=== PATIENT | female | born 1970 | race Caucasian/White ===

== ENCOUNTER 2022-05-16 14:00 | Outpatient (RCR) | payer OTHER, SELFPAY | END 2022-10-21 23:59 | disposition home or self-care (01) | LOC: CCIC 14:00 | PROVIDERS: PCP Obstetrics & Gynecology; Referring Provider Obstetrics & Gynecology; Visit Provider Internal Medicine Hematology & Oncology | DX: D05.11 Intraductal carcinoma in situ of right breast (principal) | CPT/HCPCS: 99202; 99205 ==

== ENCOUNTER 2023-01-31 09:11 | Outpatient (CLI) | payer OTHER, SELFPAY | END 2023-01-31 09:12 | disposition home or self-care (01) | LOC: NFLDREF 09:11 | PROVIDERS: PCP Obstetrics & Gynecology; Visit Provider Obstetrics & Gynecology | DX: Z01.419 Encounter for gynecological examination (general) (routine) without abnormal findings (principal); D64.9 Anemia, unspecified; Z79.899 Other long term (current) drug therapy | CPT/HCPCS: 80076 ==

== ENCOUNTER 2023-06-03 11:02 | Outpatient (CLI) | payer OTHER, SELFPAY | END 2023-06-03 11:03 | disposition home or self-care (01) | LOC: NFLDREF 06-05 08:55 | PROVIDERS: Referring Provider Obstetrics & Gynecology; Visit Provider Obstetrics & Gynecology | DX: Z79.899 Other long term (current) drug therapy (principal) | CPT/HCPCS: 80076 ==

== ENCOUNTER 2023-07-09 12:57 | Outpatient (CLI) | payer OTHER, SELFPAY | END 2023-07-09 12:58 | disposition home or self-care (01) | LOC: NFLDREF 07-10 11:27 | PROVIDERS: Visit Provider Nurse Practitioner Family | DX: R30.0 Dysuria (principal); N30.00 Acute cystitis without hematuria | CPT/HCPCS: 87086 ==

== ENCOUNTER 2024-02-24 13:18 | Outpatient (CLI) | payer OTHER, SELFPAY ==
--- OUTSIDE RECORDS SUMMARY | 2024-02-24 13:20 | XMS_ITS | Encounter Summary ---
Author Organization [facility] Address [address] [place] [address] Care Team Providers Care Pharmacy Technician Instructor Name Role Phone Danay Stiles MD Primary Care Provider Unava ilable Encounter Details Date Type Department Care Team (Latest Contact Info) Description 01/19/1996 Orders Only Danay Stiles MD Social History Tobacco Use Types Packs/Day Years Used Date Smoking Tobacco: Never Assessed Sex and Gender Information Value Date Recorded Sex Assigned at Not on file Gender Identity Not on file Sexual Orientation Not on file documented as of this encounter Plan of Treatment Not on file documented as of this encounter Visit Diagnoses Not on filedocumented in this encounter Care Teams Pharmacy Technician Instructor Relationship Specialty Start Date End Date Danay Stiles MD PCP - General 07/31/1996 documented as of this encounter
--- OUTSIDE RECORDS SUMMARY | 2024-02-24 13:20 | XMS_ITS | Encounter Summary ---
Author Organization [facility] Address [address] [place] [address] Care Team Providers Care Security Operations Analyst Name Role Phone Danay Stiles MD Primary Care Provider Unava ilable Encounter Details Date Type Department Care Team (Latest Contact Info) Description 01/28/1997 Orders Only Karen Jerez, BOAT CANVAS MAKER INSTALLER, PASSENGER SERVICE MANAGER [facility] [address] [place] [id number] Social History Tobacco Use Types Packs/Day Years Used Date Smoking Tobacco: Never Assessed Sex and Gender Information Value Date Recorded Sex Assigned at Not on file Gender Identity Not on file Sexual Orientation Not on file documented as of this encounter Plan of Treatment Not on file documented as of this encounter Visit Diagnoses Not on filedocumented in this encounter Care Teams Security Operations Analyst Relationship Specialty Start Date End Date Danay Stiles MD PCP - General 07/31/1996 documented as of this encounter
--- OUTSIDE RECORDS SUMMARY | 2024-02-24 13:20 | XMS_ITS | Encounter Summary ---
Author Organization [facility] Address [address] [place] [address] Care Team Providers Care Saw Grinder Name Role Phone Danay Stiles MD Primary Care Provider Unava ilable Encounter Details Date Type Department Care Team (Latest Contact Info) Description 12/10/1996 Orders Only Luz Perez MD [facility] [address] [place] [address], [facility] [place] [address] [place] [address] Social History Tobacco Use Types Packs/Day Years Used Date Smoking Tobacco: Never Assessed Sex and Gender Information Value Date Recorded Sex Assigned at Not on file Gender Identity Not on file Sexual Orientation Not on file documented as of this encounter Plan of Treatment Not on file documented as of this encounter Visit Diagnoses Not on filedocumented in this encounter Care Teams Saw Grinder Relationship Specialty Start Date End Date Danay Stiles MD PCP - General 07/31/1996 documented as of this encounter
--- OUTSIDE RECORDS SUMMARY | 2024-02-24 13:20 | XMS_ITS | Encounter Summary ---
Author Organization [facility] Address [address] [place] [address] Care Team Providers Care Bi Developer Name Role Phone Danay Stiles MD Primary Care Provider Unava ilable Encounter Details Date Type Department Care Team (Latest Contact Info) Description 04/15/1997 Orders Only Karen Jerez, COTTON ROLL PACKER, EDITOR NEWSPAPER [facility] [address] [place] [id number] Social History Tobacco Use Types Packs/Day Years Used Date Smoking Tobacco: Never Assessed Sex and Gender Information Value Date Recorded Sex Assigned at Not on file Gender Identity Not on file Sexual Orientation Not on file documented as of this encounter Plan of Treatment Not on file documented as of this encounter Visit Diagnoses Not on filedocumented in this encounter Care Teams Bi Developer Relationship Specialty Start Date End Date Danay Stiles MD PCP - General 07/31/1996 documented as of this encounter
--- OUTSIDE RECORDS SUMMARY | 2024-02-24 13:20 | XMS_ITS | Encounter Summary ---
Author Organization [facility] Address [address] [place] [address] Care Team Providers Care Emanations Analysis Technician Name Role Phone Danay Stiles MD Primary Care Provider Unava ilable Encounter Details Date Type Department Care Team (Latest Contact Info) Description 05/20/1996 Orders Only Gale Stallworth, STEAM SHOVEL OILER, CNM [address] [place], [place] [address] Social History Tobacco Use Types Packs/Day Years Used Date Smoking Tobacco: Never Assessed Sex and Gender Information Value Date Recorded Sex Assigned at Not on file Gender Identity Not on file Sexual Orientation Not on file documented as of this encounter Plan of Treatment Not on file documented as of this encounter Visit Diagnoses Not on filedocumented in this encounter Care Teams Emanations Analysis Technician Relationship Specialty Start Date End Date Danay Stiles MD PCP - General 07/31/1996 documented as of this encounter
--- OUTSIDE RECORDS SUMMARY | 2024-02-24 13:20 | XMS_ITS | Encounter Summary ---
Author Organization [facility] Address [address] [place] [address] Care Team Providers Care Sales Leader Name Role Phone Danay Stiles MD Primary Care Provider Unava ilable Encounter Details Date Type Department Care Team (Latest Contact Info) Description 10/04/1996 Orders Only Danay Stiles MD Social History [...] on filedocumented in this encounter Care Teams Sales Leader Relationship Specialty Start Date End Date Danay Stiles MD PCP - General 07/31/1996 documented as of this encounter
--- OUTSIDE RECORDS SUMMARY | 2024-02-24 13:20 | XMS_ITS | Encounter Summary ---
Author Organization [facility] Address [address] [place] [address] Care Team Providers Care Visitor Services Representative Name Role Phone Danay Stiles MD Primary Care Provider Unava ilable Encounter Details Date Type Department Care Team (Latest Contact Info) Description 06/03/1996 Orders Only Juan Alberto Childs MD Social History Tobacco Use Types Packs/Day Years Used Date Smoking Tobacco: Never Assessed Sex and Gender Information Value Date Recorded Sex Assigned at Not on file Gender Identity Not on file Sexual Orientation Not on file documented as of this encounter Plan of Treatment Not on file documented as of this encounter Visit Diagnoses Not on filedocumented in this encounter Care Teams Visitor Services Representative Relationship Specialty Start Date End Date Danay Stiles MD PCP - General 07/31/1996 documented as of this encounter
--- OUTSIDE RECORDS SUMMARY | 2024-02-24 13:20 | XMS_ITS | Clinical Summary ---
Author Organization [facility] Address [address] [place] [address] Phone [email or web address] Care Team Providers Care Eyeglass Lens Generator Name Role Phone Unavailable Primary Care Provider Unavailabl e Allergies Active Allergy Reactions Criticality Noted Date Comments Molds & Smuts 05/23/2021 Seasonal Allergies 05/23/2021 Medications Medication Sig Dispensed Refills Start Date End Date Status levonorgestrel (MIRENA) 20 MCG/24HR IUD 1 each by Intrauterine route 1 (one) time. Active nitrofurantoin, macrocrystal-monoh ydrate, (MACROBID) 100 MG capsuleIndications :Need for prophylaxis against urinary tract infection Take 1 capsule (100 mg total) by mouth 1 (one) time if needed (after intercourse) for up to 1 dose. 20 capsule 1 01/04/2019 Active fluticasone (FLONASE) 50 MCG/ACT nasal spray Twice A Day Active azelastine (ASTELIN) 0.1 % nasal spray Twice A Day Active Active Problems Problem Noted Date Diagnosed Date Malignant neoplasm of upper- outer quadrant of right breast in female, estrogen receptor positive 02/13/2022 Cancer 02/04/2022 DCIS (ductal carcinoma in situ) 01/31/2022 Marital conflict 05/23/2021 Immunizations Name Administration Dates Next Due COVID-19 (Pfizer Dyer 12 yrs+) (CVX-208) 021,11/23/2020,11/02/2020 Influenza (Flucelvax) MDCK, PF, quad (CVX-171) 05/14/2018 Influenza PF Tri (CVX - 140) 05/16/2016 Influenza Tri (CVX - 141) 05/18/2015 Influenza, (Afluria Fluarix Flulaval Fluzone) quad, PF (CVX-150) 05/23/2021,05/13/2019 Influenza, (Afluria Fluzone) quad, PF, 6-35 mo (CVX-161) 05/29/2017 Tdap (ADACEL BOOSTRIX) (CVX-115) 08/18/2009 Family History Medical History Relation Name Comments Cancer Father Ernie JacksonOmar Reece Jr. Prosta te, Esophageal Autoimmune disease Mother Vanesa Reece Sjogr en's syndrome Heart disease Mother Vanesa Reece Congestive heart failure Hyperlipidemia Mother Vanesa Reece Hypertension Mother Vanesa Reece Relation Name Status Comments Father Ernie ReeceJr. Alive Mother Vanesa Reece Social History Tobacco Use Types Packs/Day Years Used Date Smoking Tobacco: Never Smokeless Tobacco: Never Alcohol Use Standard Drinks/Week Comments No 0 (1 standard drink = 0.6 oz pur e alcohol) Intimate Partner Violence Answer Date R ecorded Insults You Not on file 11/28/2020 Threatens You Not on file 11/28/2020 Screams at You Not on file 11/28/2020 Physically Hurt Not on file 11/28/2020 Intimate Partner Violence Score Not on file 11/28/2020 Alcohol Use Answer Date Recorded Alcohol Use Status No 05/23/2021 Depression Answer Date Recorded PHQ Total Score 5 06/01/2022 Stress Answer Date Recorded Stress in your Life 0 09/28/2020 Dealing with Stress Not on file 09/28/2020 Sex and Gender Information Value Date Recorded Sex Assigned at Female 11/07/2020 5:55 PM CDT Gender Identity Female 11/07/2020 5:55 PM CDT Sexual Orientation Not on file Last Filed Vital Signs Vital Sign Reading Time Taken Comments Blood Pressure 98/66 03/29/2021 9:18 AM CDT Pulse 70 12/17/2018 8:04 AM CDT Temperature 36.4 ??C (97.6 ??F) 12/17/2018 8:04 AM CD T Respiratory Rate 14 12/17/2018 8:04 AM CDT Oxygen Saturation - - Inhaled Oxygen Concentration - - Weight 79.9 kg (176 lb 1.6 oz) 03/29/2021 9:18 A M CDT Height 177.8 cm (5' 10) 03/29/2021 9:18 AM CDT Body Mass Index 25.27 03/29/2021 9:18 AM CDT Plan of Treatment Health Maintenance Due Date Last Done Comments Dental Cleaning/Exam 1969 Cervical Cancer Screening 1985 Hepatitis B Immunization (1 of 3 - 19+ 3-dose series) 1988 Colorectal Cancer Screening 11/30/1999 Tetanus (Tdap or Td) Immunization 08/18/2019 08/18/2009, 04/15/1997 Zoster Immunization (1 of 2) 11/30/2019 Breast Cancer Screening 07/01/2021 07/01/2019 Covid-19 Immunization ( season) 2023 08/02/2021, 11/23/2020, 11/02/2020 Influenza Immunization (#1) 2024 10/0 01/2021, 05/13/2019, 05/14/2018, Additional history exists HIB Immunization Aged Out No longer e ligible based on patient's age to complete this topic HPV Immunization Aged Out No longer e ligible based on patient's age to complete this topic Hepatitis A Immunization Aged Out No longer eligible based on patient's age to complete this topic Pneumococcal: Ped (0 to 5 Yrs) and At-Risk Member (6 to 64 Yrs) Aged Out No longer eligible based on patient's age to complete this topic Polio Immunization Aged Out No longer eligible based on patient's age to complete this topic Goals Goal Patient Goal Type Associated Problems Recent Progress Patient-Stated? Author Behavioral Health related goal Behavior On track(2021 3:27 PM CDT) No Lizzette Gibson LPCC Note: SMART Goal: Get to know self better by setting boundaries in relationship with partner, identifying past memories/hobbies and engaging in them, and processing thoughts and feelings in session to develop identity. Motivators: Self, health, relationships. Barriers/Strategies: Behavioral patterns, relationships. Confidence (1-10): 6-8 Behavioral Health related goal Behavior On track(2021 3:27 PM CDT) No Lizzette Gibson LPCC Note: SMART Goal: Become more in touch with my feelings by identifying and verbalizing my experiences in session. In doing so, be more honest with myself and others. Motivators: Self, health, relationships. Barriers/Strategies: Behavioral patterns. Confidence (1-10): 6 Behavioral Health related goal Behavior On track(2021 3:27 PM CDT) Lizzette Mina, [facility] Note: SMART Goal: Communicate with others more effectively by learning and applying different interpersonal skills (at least 3). Motivators: Relationships. Barriers/Strategies: Behavior patterns Confidence (1-10): 5
--- OUTSIDE RECORDS SUMMARY | 2024-02-24 13:20 | XMS_ITS | Encounter Summary ---
Author Organization [facility] Address [address] [place] [address] Care Team Providers Care Formulation Scientist Name Role Phone Danay Stiles MD Primary Care Provider Unava ilable Encounter Details Date Type Department Care Team (Latest Contact Info) Description 03/08/1997 Orders Only Kait Nickerson Social History Tobacco Use Types Packs/Day Years Used Date Smoking Tobacco: Never Assessed Sex and Gender Information Value Date Recorded Sex Assigned at Not on file Gender Identity Not on file Sexual Orientation Not on file documented as of this encounter Plan of Treatment Not on file documented as of this encounter Visit Diagnoses Not on filedocumented in this encounter Care Teams Formulation Scientist Relationship Specialty Start Date End Date Danay Stiles MD PCP - General 07/31/1996 documented as of this encounter
--- OUTSIDE RECORDS SUMMARY | 2024-02-24 13:20 | XMS_ITS | Clinical Summary ---
Author [facility] Address [address] [place] [address] Care Team Providers Care Narrow Fabrics Weaver Name Role Phone Danay Stiles MD Primary Care Provider Unava ilable Source Comments You are receiving this document as you are listed as the primary care provider,follow-up provider, or the patient has been referred to you for consultation.This is in compliance with the Medicare and[facility] EHR Incentive Program,which states Providers who transition their patient to another setting of careor provider of care or refers their patient to another provider of care shouldprovide summary care record for each transition of care or referral. [employer] Immunizations Name Administration Dates Next Due Td 04/15/1997 Varicella 09/27/1997(Deferred: Immune by Ella alcaraz) Family History Medical History Relation Name Comments Cancer, Breast Negative Family History Social History Tobacco Use Types Packs/Day Years Used Date Smoking Tobacco: Never Assessed Sex and Gender Information Value Date Recorded Sex Assigned at Not on file Gender Identity Not on file Sexual Orientation Not on file Plan of Treatment Health Maintenance Due Date Last Done Comments Cervical Cancer Screening Due 1969 Colon Cancer Screening Plan Due 1969 Hep C Screening (Preventive Services) 1969 HIV Screening (Preventive Services) 1985 Adult Preventive Visit 11/30/1987 HepB (1) 1988 DTaP/Tdap/Td (1 - Tdap) 04/16/1997 04/15/1997 Cholesterol 2014 Zoster/Shingles (1 of 2) 11/30/2019 Mammogram 07/01/2020 07/01/2019 COVID-19 Vaccine (3 - 2022-2 4 season) 2023 11/23/2020, 11/02/2020 Influenza (#1) 2024 06/05/2020, 05/26/2015 HepA Aged Out No longer eligi ble based on patient's age to complete this topic Hib Aged Out No longer eligi ble based on patient's age to complete this topic IPV (Polio) Aged Out No longer eligi ble based on patient's age to complete this topic MCV4 Aged Out No longer eligi ble based on patient's age to complete this topic Pneumococcal Aged Out No longer eligi ble based on patient's age to complete this topic Procedures Procedure Name Priority Date/Time Associated Diagnosis Comments MM MAMMOGRAM SCREENING BILAT W 3D ARIK W CAD Routine 07/01/2019 12:52 PM PILL PACKER Visit for screening mammogram from Last 3 Months or Most Recently Relevant to Health Maintenance Results * MM Mammogram Screening Bilat W 3D Arik W CAD (07/01/2019 12:52 PM PILL PACKER) Anatomical Region Laterality Modality Breast Bilateral Mammography Impressions 07/06/2019 8:19 AM PILL PACKER : ACR BI-RADS Category 1: Negative RECOMMENDATION: Follow Up Imaging in 12 months The results and recommendations of this examination will be communicated to the patient. Narrative 07/06/2019 8:19 AM PILL PACKER MM MAMMOGRAM SCREENING BILAT W 3D ARIK W CAD performed on 07/01/19 Compared to: 12/11/2017 Foreign Image(S) Mammogram and 12/10/2016 Foreign Image(S) Mammogram FINDINGS: Bilateral screening mammogram was performed with the assistance of Computer-Aided Detection and breast tomosynthesis. The breasts are heterogeneously dense, which may obscure small masses. There is no radiographic evidence of malignancy. ?? Bridgette Magi Lowe TRACK SUPERINTENDENT, LIFE EDUCATOR RAD JENELLE from Last 3 Months or Most Recently Relevant to Health Maintenance Care Teams Narrow Fabrics Weaver Relationship Specialty Start Date End Date Danay Stiles MD PCP - General 07/31/1996
--- OUTSIDE RECORDS SUMMARY | 2024-02-24 13:20 | XMS_ITS | Clinical Summary ---
Author Organization [facility] Address [place], [place] [address] Care Team Providers Care Application Programmer Analyst Name Role Phone Genoveva Barakat MD Unavailable Unavailable Daniel Brown MD Unavailable [phone] Estefanía Reynolds MD Unavailable [phone] Estrella Rizo Primary Care Provider [phone] Allergies Active Allergy Reactions Criticality Noted Date Comments Gold Sodium Thiosulfate *Unknown 03/18/2022 Mold *Unknown 05/23/2021 Pollen Extracts Runny Nose 05/23/2021 Wound Dressings Rash 03/27/2022 Tegaderm Pt has been okay with Tegaderm used on IV dressing SIGNIFICANT RASH Medications Medication Sig Dispensed Refills Start Date End Date Status fluticasone (50 mcg per actuation) nasal solution (FLONASE) 2 times daily. Active azelastine 137 mcg/actuation (ASTELIN) nasal spray ONE SPRAY IN EACH NOSTRIL TWICE PER DAY. USE WITH FLUTICASONE 01/24/2022 Active hydrocortisone 2.5% cream PLEASE SEE ATTACHED FOR DETAILED DIRECTIONS 12/03/2021 Active ketoconazole 2% topical (NIZORAL) cream APPLY TWICE A DAY TOPICALLY TO EYEBROWS 12/03/2021 Active tacrolimus 0.1% (PROTOPIC) 0.1 % ointment USE 1 APPLICATION THREE TIMES A DAY NEEDED TOPICALLY TO EYEBROWS 01/21/2022 Active levocetirizine (XYZAL) 5 mg tab tablet Take 5 mg by mouth once daily. 01/09/2022 Active multivitamin (MVI) tablet Take 1 Tablet by mouth once daily. 0 02/28/2022 Active methocarbamoL (ROBAXIN) 750 mg tabletIndications:M alignant neoplasm of upper-outer quadrant of right breast in female, estrogen receptor positive (HC) Take 1 Tablet (750 mg) by mouth four times daily 6 hours apart. 45 Tablet 04/26/2022 Active Veozah 45 mg tablet Take 45 mg by mouth once daily. 03/24/2023 Active Active Problems Problem Noted Date Diagnosed Date Malignant neoplasm of upper- outer quadrant of right breast in female, estrogen receptor positive 02/13/2022 Cancer Staging:Clinical:Stage 0(cTis (DCIS), cN0, cM0, G3, ER+) - Signed by Genoveva Barakat MD on 02/13/2022 Pathologic:Stage Unknown(pTis (DCIS), pNX, G3, ER+) - Signed by Genoveva Barakat MD on 03/26/2022 Resolved Problems Problem Noted Date Diagnosed Date Resolved Date Cancer 10/08/2022 10/08/2022 Cancer 10/08/2022 10/08/2022 Cancer 10/08/2022 10/08/2022 Cancer 02/04/2022 10/08/2022 Cancer 02/04/2022 10/08/2022 Malignant neoplasm of overla pping sites of right breast in female, estrogen receptor positive 01/16/2022 10/08/2022 Encounters Date Type Department Care Team Description 02/22/2024 Travel 02/03/2024 11:00 AM CDT Procedure Only [facility] [address] [place] [address] Taniya Peter L Ac Acupuncture 02/03/2024 Travel 01/30/2024 Travel 01/23/2024 11:30 AM CDT Procedure Only [facility] [address] [facility] [place] [address] Taniya Peter L Ac Acupuncture 01/23/2024 Travel 01/19/2024 Travel 01/09/2024 11:30 AM CDT Procedure Only [facility] [address] [place] [address] Taniya Peter L Ac Acupuncture 01/09/2024 Travel 01/06/2024 Travel 12/25/2023 11:30 AM CDT Procedure Only [facility] [address] [facility] [address] Taniya Peter L Ac Acupuncture 12/25/2023 Travel 12/21/2023 Travel 12/12/2023 11:30 AM CDT Procedure Only [facility] [address] [place] [address] Taniya Peter L Ac Acupuncture 12/12/2023 Travel 12/09/2023 Travel 11/28/2023 2:00 PM CDT Procedure Only [facility] [address] [place] [address] [address] Taniya Peter L Ac Acupuncture 11/28/2023 Travel 11/25/2023 Travel from Last 3 Months Immunizations Name Administration Dates Next Due COVID-19 vaccine (Spongecell 30mcg/0.3mL) PF, MDV 08/02/2021,11/23/2020,11/02/2020 Influenza RIV4 (Age 18+ Year s) PRESERV FREE 06/06/2022 Influenza Virus, Unspecified 05/23/2021, 05/13/2019,05/14/2018,2015,05/18/2015 Influenza, IIV4 06/05/2020,05/26/2015 Influenza, IIV4 (Age 6-35 Mos) 05/29/2017 Td (Age >=7 Years) 04/15/1997 Td, Preservative Free (age > = 7 Years) 07/16/2005 Tdap 01/29/2022,08/18/2009 Family History Medical History Relation Name Comments Cancer-prostate Father late 60s Cancer-breast Other Half PAT aunt dx age unknow n same mother Melanoma Other Half PAT aunt Cancer-breast Paternal Aunt unsure age Cancer-colon No Family History Cancer-ovarian No Family History Relation Name Status Comments Father Other Half PAT aunt half paternal aunt Paternal Aunt Social History Tobacco Use Types Packs/Day Years Used Date Smoking Tobacco: Never Smokeless Tobacco: Never Alcohol Use Standard Drinks/Week Comments Yes 0 (1 standard drink = 0.6 oz pure alcohol) Wine/Prosecco a few times a year Social Connections Answer Date Recorded Frequency of Communication with Friends and Fami ly 0 12/25/2023 Financial Resource Strain Answer Date R ecorded Difficulty of Paying Living Expenses 3 12/25/2023 Difficulty of Paying Living Expenses Not on file 12/25/2023 Food Insecurity Answer Date Recorded Worried About Running Out of Food in the Last Ye ar 1 12/25/2023 Transportation Needs Answer Date Record ed Lack of Transportation (Medical) 1 12/25/2023 Housing Stability Answer Date Recorded Unable to Pay for Housing in the Last Year 1 12/25/2023 Sex and Gender Information Value Date Recorded Sex Assigned at Not on file Gender Identity Not on file Sexual Orientation Not on file Obstetrics History Last Filed Vital Signs Vital Sign Reading Time Taken Comments Blood Pressure 101/69 04/16/2023 10:28 AM CDT Pulse 67 04/16/2023 10:28 AM CDT Temperature 36 ??C (96.8 ??F) 10/23/2022 11:00 AM ADVENTURE EDUCATION TEACHER Respiratory Rate 18 10/23/2022 11:00 AM ADVENTURE EDUCATION TEACHER Oxygen Saturation 100% 04/16/2023 10:28 AM CDT Inhaled Oxygen Concentration - - Weight 83.7 kg (184 lb 9.6 oz) 04/16/2023 10:28 AM CDT Height 177.6 cm (5' 9.92) 04/16/2023 10:28 AM C DT Body Mass Index 26.55 04/16/2023 10:28 AM CDT Plan of Treatment Upcoming Encounters Date Type Department Care Team (Late st Contact Info) Description 02/27/2024 12:00 PM CDT Procedure Only [facility] [address] [place] [address] Taniya Peter L Ac [address] [place] [address] 03/08/2024 11:00 AM CDT Procedure Only [facility] [address] [place] [address] Taniya Peter L Ac [address] [place] [address] 03/10/2024 3:15 PM CDT Appointment [facility] [address] [place] [address] 03/22/2024 11:00 AM CDT Procedure Only [facility] [address] [facility] [address] Taniya Peter, L Ac [address] [place] [address] 04/09/2024 11:00 AM CDT Procedure Only [facility] [address] [place] [address] Taniya Peter, L Ac [address] [place] [address] 04/29/2024 11:00 AM CDT Procedure Only [facility] [address] [facility] [place] [address] Taniya Peter, L Ac [address] [place] [address] 05/14/2024 11:00 AM CDT Procedure Only [facility] [address] [place] [address] Taniya Peter, L Ac [address] [place] [address] Health Maintenance Due Date Last Done Comments Depression screening for age 12+ 1981 HIV for age 15-65 1984 Hepatitis C screening for age 18-79 11/30/1987 Colonoscopy through age 75 2014 Lipids for age 45-75 2014 Zoster (shingles) series for age 50+ (1 of 2) 11/30/2019 Pap test for age 21-65 12/22/2023 12/21/2020, 2020 Mammogram for age 45-75 01/29/2024 01/28/2023, 03/20 BMI (ht and wt on same day) for age 18+ 04/16/2024 04/16/2023, 05/07/2022, 03/27/2022, Additional history exists Influenza for age 50-64 04/18/2024 06/06/20 22, 05/23/2021, 06/05/2020, Additional history exists Tetanus booster 01/30/2032 01/29/2022, 08/2009, 07/16/2005, Additional history exists Tdap Completed 01/29/2022, 08/18/2009 COVID-19 vaccine series Completed 06/18/20 23, 08/02/2021, 11/23/2020, Additional history exists Pneumococcal series for age 6-64 Aged Out No longer eligible based on patient's age to complete this topic Medical Devices Implanted Type Area Ed Teacher Device Identifier Shelf Expiration Date Model / Serial / Lot [id number] [id number] 8x16cm Essie Lerma Rtu Implanted:Qty: 1 on 04/25/2022 by Daniel Brown MD at [facility] Explanted:at [facility] (Quantity not on file) Right: Breast Tonara 10/15/2022 [id number] / [id number] / [id number] breast Implant Cpx4 Plus Sm Te Mh 450cc Implanted:Qty: 1 on 04/25/2022 by Daniel Brown MD at [facility] Explanted:at [facility] (Quantity not on file) Right: Breast H [employer] 07/26/2025 [id number] / [id number] Description:BREAST IMPLANT C PX4 PLUS SM TE MH 450CC Procedures Procedure Name Priority Date/Time Associated Diagnosis Comments ACUPUNCTURE PLAN OF CARE Routine 02/03/2024 11:00 AM CDT Chronic jaw pain ACUPUNCTURE PLAN OF CARE Routine 01/23/2024 11:31 AM CDT Chronic jaw pain ACUPUNCTURE PLAN OF CARE Routine 01/09/2024 11:29 AM CDT Chronic jaw pain ACUPUNCTURE PLAN OF CARE Routine 12/25/2023 11:32 AM CDT Chronic jaw pain ACUPUNCTURE PLAN OF CARE Routine 12/12/2023 11:32 AM CDT Chronic jaw pain ACUPUNCTURE PLAN OF CARE Routine 11/28/2023 1:59 PM CDT Chronic jaw pain XR MAMMO SHELIA UNI SCREEN IMPLANT LEFT Routine 01/28/2023 10:42 AM CDT Encounter for screening mammogram for malignant neoplasm of breast MARKETING TECHNOLOGY COORDINATOR THIN PREP PAP SCREEN IMAGED Routine 12/21/2020 1:55 PM CDT from Last 3 Months or Most Recently Relevant to Health Maintenance Results * XR MAMMO SHELIA UNI SCREEN IMPLANT LEFT (01/28/2023 10:42 AM CDT) Anatomical Region Laterality Modality BREASTS, Breast Left Left Mammography Impressions 01/28/2023 10:54 AM CDT ??There is no radiographic evidence for malignancy. ??Recommend annual mammograms. MAMMOGRAM ASSESSMENT: ??ACR 2 Benign PATIENTS: You will also receive a letter with your examination results in an easy to read format. ??If you have questions about your results, please contact your referring provider. Narrative 01/28/2023 10:54 AM CDT For Patients: As a result of the Cures Act, medical imaging exams and procedure reports are released immediately into your electronic medical record. You may view this report before your referring provider. If you have questions, please contact your health care provider. XR MAMMO SHELIA UNI SCREEN IMPLANT LEFT [[id number]] CLINICAL HISTORY: ??This is an asymptomatic 52 y.o. patient. INDICATION FOR EXAM: Mammogram Screening. TECHNIQUE: CC & MLO views were obtained. Implant displacement views were obtained. This study was evaluated with the assistance of Computer-Aided Detection. Breast Tomosynthesis was used in interpretation. COMPARISON FILMS: Yes 01/16/22 Outside Facility 07/01/19 Outside Facility FINDINGS: ??The left breast is heterogeneously dense, which may obscure small masses. ??No suspicious masses or microcalcifications. ??There are breast implant(s) present.. Ludy Baez MD MAMMO * MARKETING TECHNOLOGY COORDINATOR THIN PREP PAP SCREEN IMAGED (12/21/2020 1:55 PM CDT) Case Report Gynecologic Cytology Report ? Case: [id number] ? Authorizing Provider: ??Ludy Baez MD ?? Collected: ? 12/21/2020 1355 ? Ordering Location: ? [facility] ?Received: ?12/24/2020 0928 ? First Screen: ?Baccam, Minie ? Rescreen: ?[place] ? Specimen: ?MARKETING TECHNOLOGY COORDINATOR ThinPrep Vial Screening, Cervical/Vaginal ? 01/03/2021 2:28 PM CDT [facility] INTERPRETATION/ RESULT NEGATIVE FOR INTRAEPITHELIAL LESION OR MALIGNANCY (NIL) (none) 01/03/2021 2:28 PM CDT [facility] IMEN ADEQUACY Satisfactory for evaluation Endocervical component present 01/03/2021 2:28 PM CDT [facility]AL LAB[facility]ATORY HPV REQUEST HPV and PAP 01/03/2021 2:28 PM CDT [facility] Date of LMP 01/03/2021 2:28 PM CDT [facility] Comment:NA Menstrual Status 01/03/2021 2:28 PM CDT [facility] Comment:IUD Additional Information 01/03/2021 2:28 PM CDT [facility] Comment: Interpreted at [facility] - [address], [place] [address] Automated Review Successful 01/03/2021 2:28 PM CDT [facility] Comment:Specimen processed s uccessfully by automated hazardous materials tanker driver device, LotamePrep Imaging System, [employer] ANCILLARY TESTING MARKETING TECHNOLOGY COORDINATOR HPV Ordered, Please see separate report 01/03/2021 2:28 PM CDT [facility] Note The pap test is a screening technique, not a diagnostic procedure. It is used primarily to screen for squamous cancers and precursor lesions. Published studies have shown that it is subject to both false negative and false positive results. The pap test should not be used as the sole means to diagnose or exclude pre-malignant and malignant lesions. 01/03/2021 2:28 PM CDT [facility] Other (Cervical/Vagina l) 12/21/2020 1:55 PM CDT 12/24/2020 9:28 AM CDT Ludy Baez MD PATHOLOGY/CYTOLOG Y [facility] [address] [place] [address], [place] from Last 3 Months or Most Recently Relevant to Health Maintenance Advance Directives * Full Code (Latest Code Status on File) Date Activated Date Inactivated Comments 04/26/2022 7:06 AM 04/26/2022 4:30 PM Question Answer Comments Code Status Discussion: Reviewed Preferences * Full Code Date Activated Date Inactivated Comments 04/25/2022 1:03 PM 04/26/2022 7:06 AM Question Answer Comments Code Status Discussion: Unable to Assess Preferences, Provider to review later * Full Code Date Activated Date Inactivated Comments 04/25/2022 1:03 PM 04/25/2022 1:03 PM Question Answer Comments Code Status Discussion: Reviewed Preferences * Full Code Date Activated Date Inactivated Comments 03/21/2022 9:32 AM 03/21/2022 5:24 PM Question Answer Comments Code Status Discussion: Reviewed Preferences Care Teams Application Programmer Analyst Relationship Specialty Start Date End Date Estrella Rizo PA [address] [place] [address] PCP - General Physician Patient Portal Concierge 11/08/22 Genoveva Barakat MD Surgery - General 02/08/22 Daniel Brown MD [address] [facility] [address] [place] [address] Plastic and Reconstructive Surgery 02/20/22 Estefanía Reynolds MD [address] [facility] [address], [id number] [place] [address] Oncology 04/30/22
--- OUTSIDE RECORDS SUMMARY | 2024-02-24 13:20 | XMS_ITS | Encounter Summary ---
Author Organization [facility] Address [address] [place] [address] Care Team Providers Care Power Marketer Name Role Phone Danay Stiles MD Primary Care Provider Unava ilable Encounter Details Date Type Department Care Team (Latest Contact Info) Description 09/28/1996 Orders Only Tay Morgan MD Social History Tobacco Use Types Packs/Day Years Used Date Smoking Tobacco: Never Assessed Sex and Gender Information Value Date Recorded Sex Assigned at Not on file Gender Identity Not on file Sexual Orientation Not on file documented as of this encounter Plan of Treatment Not on file documented as of this encounter Visit Diagnoses Not on filedocumented in this encounter Care Teams Power Marketer Relationship Specialty Start Date End Date Danay Stiles MD PCP - General 07/31/1996 documented as of this encounter
== END 2024-02-24 13:19 | disposition home or self-care (01) ==
PROVIDERS: Visit Provider Obstetrics & Gynecology
DX: Z01.419 Encounter for gynecological examination (general) (routine) without abnormal findings (principal); R53.83 Other fatigue; R68.82 Decreased libido; Z13.1 Encounter for screening for diabetes mellitus; Z79.899 Other long term (current) drug therapy
CPT/HCPCS: 80061; 80076; 82306; 82465; 84270; 84402; 84403; 84443

== ENCOUNTER 2025-03-17 08:48 | Outpatient (CLI) | payer OTHER, SELFPAY | END 2025-03-17 08:49 | disposition home or self-care (01) | PROVIDERS: Visit Provider Obstetrics & Gynecology | DX: E78.00 Pure hypercholesterolemia, unspecified (principal); R17 Unspecified jaundice; R53.83 Other fatigue | CPT/HCPCS: 80061; 80076; 84443 ==